=== PATIENT | female | born 1955 | race Caucasian/White ===

== ENCOUNTER → 2016-06-24 | Outpatient (CLI) | payer BC | LOC: MC.RAD 06-17 13:20 | DX: Z12.31 Encounter for screening mammogram for malignant neoplasm of breast (principal) ==

== ENCOUNTER → 2018-03-02 | Outpatient (CLI) | payer OTHER | LOC: MC.RAD 14:11 | DX: Z12.31 Encounter for screening mammogram for malignant neoplasm of breast (principal) ==

== ENCOUNTER 2018-10-26 09:09 | Day surgery (SDC) | payer OTHER ==
[~2018-10-26] VITALS: Ht 165.1 cm; Wt 67.1 kg
[2018-10-26 09:35] VITALS: BP 124/78; PULSE 55; TEMP 98.7
[2018-10-26] MEDS ORDERED: DITROPAN XL10 MG PO (09:48)
[2018-10-26] MEDS ORDERED: CELEXA40 MG PO (09:48)
[2018-10-26] MEDS ORDERED: NEXIUM 20MG20 MG PO (09:49)
[2018-10-26] MEDS ORDERED: MULTI VITAMINS1 TAB PO (09:49)
[2018-10-26] MEDS ORDERED: NEXIUM 24HR20 M1 PO (09:50)
[2018-10-26] MEDS ORDERED: MOBIC15 MG PO (09:51)
[2018-10-26] MEDS ORDERED: FOSAMAX 70MG TA70 MG PO (09:51)
--- NOTE | 2018-10-26 09:52 | NUR ---
TO RM AT 0915- CALL LIGHT IN REACH WILL NEED TO CALL [facility] FOR RIDE HOME
[2018-10-26 11:15] VITALS: BP 102/66; PULSE 53
--- NOTE | 2018-10-26 11:15 | NUR ---
Pt to GI [facility] 8 via cart from [email or web address]. Pt drowsy, but awakens easily. Pt ambulates to recliner with stand by assistance. Warm blanket provided. Pt denies nausea or pain. Muffin, coffee, and water provided. Will continue to monitor. Call light within reach.
[2018-10-26 11:30] VITALS: BP 93/67; PULSE 52
--- NOTE | 2018-10-26 11:30 | NUR ---
Pt tolerating po food and fluids without difficulties. Will continue to monitor. Call light within reach.
[2018-10-26 11:45] VITALS: BP 96/70; PULSE 61
--- NOTE | 2018-10-26 11:45 | NUR ---
Pt continues to rest. Denies needs. Call light within reach.
[2018-10-26 12:00] VITALS: BP 85/68; PULSE 56
--- NOTE | 2018-10-26 12:00 | NUR ---
Pt continues to rest. More coffee provided. Waiting for physician to consult. Call light within reach.
[2018-10-26 12:30] VITALS: BP 93/67; PULSE 58
--- NOTE | 2018-10-26 12:30 | NUR ---
Discharge instructions reviewed. Pt voices understanding. IV site discontinued with all parts intact. Pt up to dress. Call light within reach.
--- NOTE | 2018-10-26 12:40 | NUR ---
Pt escorted to private car via wheel chair. Pt accompanied home by her .
== END 2018-10-26 12:40 | disposition home or self-care (01) ==
LOC: SDCO 09:09
DX: K92.1 Melena (principal); K64.0 First degree hemorrhoids; K21.9 Gastro-esophageal reflux disease without esophagitis
CPT/HCPCS: OP; J2250; J3010; J7030

== ENCOUNTER → 2019-07-08 | Outpatient (CLI) | payer MEDICARE, OTHER ==
[~2019-07-08] MED LIST: CELEXA40 MG PO; DITROPAN XL10 MG PO; FOSAMAX 70MG TA70 MG PO; MOBIC15 MG PO; MULTI VITAMINS1 TAB PO; NEXIUM 20MG20 MG PO; NEXIUM 24HR20 M1 PO
== END ==
LOC: MC.RAD 15:42
DX: Z12.31 Encounter for screening mammogram for malignant neoplasm of breast (principal)

== ENCOUNTER → 2020-01-27 | Outpatient (CLI) | payer MEDICARE, OTHER | LOC: ZCOL.LAB 15:48 | DX: Z20.828 Contact with and (suspected) exposure to other viral communicable diseases (principal) ==

== ENCOUNTER → 2020-08-07 | Outpatient (CLI) | payer MEDICARE, OTHER | LOC: MC.RAD 12:49 | DX: Z12.31 Encounter for screening mammogram for malignant neoplasm of breast (principal) ==

== ENCOUNTER → 2021-09-02 | Outpatient (CLI) | payer MEDICARE, OTHER | LOC: MC.RAD 14:02 | DX: Z12.31 Encounter for screening mammogram for malignant neoplasm of breast (principal) ==

== ENCOUNTER → 2024-03-05 | Outpatient (CLI) | payer MEDICARE, OTHER | LOC: MC.RAD 09:07 | DX: Z12.31 Encounter for screening mammogram for malignant neoplasm of breast (principal) ==